=== PATIENT | male | born 1980 | race Caucasian/White ===

== ENCOUNTER 2017-01-22 20:28 | Emergency (ER) | payer MEDICAID, OTHER ==
[2017-01-22 20:32] VITALS: BP 125/103; PULSE 136; RESP 18; TEMP 98.2; O2SAT 95
== END 2017-01-22 21:25 | disposition left against medical advice (07) ==
DX: Z53.21 Procedure and treatment not carried out due to patient leaving prior to being seen by health care provider (principal)

== ENCOUNTER 2017-01-28 21:01 | Emergency (ER) | payer MEDICAID ==
[2017-01-28 21:12] VITALS: RESP 16
--- NOTE | 2017-01-28 21:27 | CPEKG ---
Heart Rate: 97 RR Interval: 619 P-R Interval: 152 QRSD Interval: 94 QT Interval: 348 QTC Interval: 442 P [place]: 56 QRS [place]: 20 T Wave [place]: 5 EKG Severity - NORMAL ECG - EKG Impression: SINUS RHYTHM Electronically Signed By: Keny Lepe 28-Jan-2017 22:59:16
[2017-01-28 21:33] VITALS: TEMP 98.6
[2017-01-28] MEDS ORDERED: ONDANSETRON 4 MG/2 ML VIAL IVP ONE (21:38)
[2017-01-28] MEDS ORDERED: NS 1,000 ML IV ONE (21:38)
[2017-01-28] MEDS ORDERED: ONDANSETRON 4 MG/2 ML VIAL ONE (21:38)
[2017-01-28 21:47] LABS: % IMMATURE GRANULYOCYTES 0.2 % (0.0-1.1); ABSOLUTE IMMATURE GRANULOCYTES 0.02 10^3/uL (0.00-0.10); ADD DIFF? NO; ADD MORPH? NO; ADD SCAN? NO; ATYPICAL LYMPHOCYTE FLAG 0 (0-99); FRAGMENT RBC FLAG 0 (0-99); HEMATOCRIT 50.3 % (40.0-51.0); HEMOGLOBIN 18.4 g/dL (13.7-17.5); LEFT SHIFT FLG 0 (0-99); LIPEMIA HEMOLYSIS FLAG 90 (0-99); MEAN CELL HEMOGLOBIN 30.7 pg (27.9-34.1); MEAN CELL HEMOGLOBIN CONCENTR. 36.6 g/dL (32.4-36.7); MEAN CELL VOLUME 83.8 fL (81.5-99.8); MEAN PLATELET VOLUME 9.6 fL (8.7-11.7); PLATELET CLUMPS FLAG 0 (0-99); PLATELET COUNT 118 10^3/uL (150-400); RED CELL DISTRIBUTION WIDTH 11.7 % (11.5-15.2)
[2017-01-28 21:49] LABS: ANION GAP 24 mEq/L (8-16); CALCIUM 9.4 mg/dL (8.5-10.4); CARBON DIOXIDE 30 mEq/l (22-31); CHLORIDE 85 mEq/L (97-110); GLOMERULAR FILTRATION RATE > 60; GLUCOSE 124 mg/dL (70-100); POTASSIUM 3.8 mEq/L (3.5-5.2); SODIUM 139 mEq/L (134-144)
--- NOTE | 2017-01-28 22:01 | EDPHY ---
H & P Time Seen by Provider: 01/28/17 21:28 HPI/ROS: CHIEF COMPLAINT: Alcohol intoxication, vomiting HISTORY OF PRESENT ILLNESS: 36-year-old male presents to the emergency department by ambulance with acute alcohol intoxication. The patient states that he has been drinking heavily over last 2 weeks. He has been vomiting intermittently over last several days. Today he became very weak and was unable to get out of the bathtub and his brother's girlfriend called EMS for transport to the hospital. Patient has had intermittent chest pain for last several days as well. He denies difficulty breathing. He denies neck or back pain. No reported trauma. No injury to upper or lower extremities. REVIEW OF SYSTEMS: Constitutional: No fever, no chills. Eyes: No double or blurry vision. ENT: No sore throat. Respiratory: No cough, no shortness of breath. Cardiac: chest pain. Gastrointestinal: Vomiting as above. No diarrhea. Genitourinary: No dysuria. Musculoskeletal: No neck or back pain. Skin: No rashes. Neurological: No headache. Past Medical/Surgical History: Alcoholism, alcohol withdrawal seizures, hypertension noncompliant with medication Social History: Single Smoking Status: Current some day smoker Physical Exam: General Appearance: Alert, no distress. Smells strongly of alcohol. No visible signs of trauma to his head. Eyes: Pupils equal and round. Extraocular motions are all intact. ENT: Mouth: Mucous membranes moist. Respiratory: No wheezing, rhonchi, or rales, lungs are clear to auscultation. Cardiovascular: Regular rate and rhythm. Gastrointestinal: Abdomen is soft. He does have tenderness with palpation in the right upper quadrant. There is no masses, rebound or guarding noted. No CVA tenderness bilaterally. Neurological: Alert and oriented x 3, cranial nerves II through XII grossly intact Skin: Warm and dry, no rashes. Musculoskeletal: Nontender to palpate along the cervical, thoracic or lumbar spine. Neck is supple. Extremities: Full range of motion and no peripheral edema. Psychiatric: Patient is oriented X 3, there is no agitation. Constitutional: Initial Vital Signs Temperature (C) 37 C 01/28/17 21:10 Heart Rate 95 01/28/17 21:10 Respiratory Rate 16 01/28/17 21:10 Blood Pressure 132/91 H 01/28/17 21:10 O2 Sat (%) 94 01/28/17 21:10 O2 Delivery Mode Room Air Allergies/Adverse Reactions: No Known Allergies Allergy (Unverified 04/13/16 14:22) Home Medications: Medication Instructions Recorded NK [No Known Home Meds] 04/13/16 Medical Decision Making ED Course/Re-evaluation: 36-year-old male who is acutely intoxicated with alcohol presents to the emergency department by ambulance with vomiting. He had an IV established by EMS and he was given IV normal saline and IV Zofran. Patient was feeling much better. Laboratory studies reveal normal CO2 30. Sodium and potassium are normal. The patient is requesting removal of his IV. At 10:45 p.m.: Patient is ambulatory unassisted and is requesting to be discharged. His brother's girlfriend is at bedside who is sober and will take him home. I did encourage [facility] to [facility], however the patient refused. Differential Diagnosis: Including but not limited to dehydration, electrolyte abnormality, alcoholic ketoacidosis - Data Points Laboratory Results: Laboratory Results 01/28/17 21:00 01/28/17 21:00 01/28/17 01/28/17 21:00 21:00 WBC 8.58 10^3/uL 10^3/uL (3.80-9.50) RBC 6.00 10^6/uL 10^6/uL (4.40-6.38) Hgb 18.4 g/dL H g/dL (13.7-17.5) Hct 50.3 % % (40.0-51.0) MCV 83.8 fL fL (81.5-99.8) MCH 30.7 pg pg (27.9-34.1) MCHC 36.6 g/dL g/dL (32.4-36.7) RDW 11.7 % % (11.5-15.2) Plt Count 118 10^3/uL L 10^3/uL (150-400) MPV 9.6 fL fL (8.7-11.7) Neut % (Auto) 46.8 % % (39.3-74.2) Lymph % (Auto) 44.4 % % (15.0-45.0) [place] % (Auto) 8.2 % % (4.5-13.0) Eos % (Auto) 0.1 % L % (0.6-7.6) Baso % (Auto) 0.3 % % (0.3-1.7) Nucleat RBC Rel Count 0.0 % % (0.0-0.2) Absolute Neuts (auto) 4.01 10^3/uL 10^3/uL (1.70-6.50) Absolute Lymphs (auto) 3.81 10^3/uL H 10^3/uL (1.00-3.00) Absolute Monos (auto) 0.70 10^3/uL 10^3/uL (0.30-0.80) Absolute Eos (auto) 0.01 10^3/uL L 10^3/uL (0.03-0.40) Absolute Basos (auto) 0.03 10^3/uL 10^3/uL (0.02-0.10) Absolute Nucleated RBC 0.00 10^3/uL 10^3/uL (0-0.01) Immature Gran % 0.2 % % (0.0-1.1) Immature Gran # 0.02 10^3/uL 10^3/uL (0.00-0.10) Sodium 139 mEq/L mEq/L (134-144) Potassium 3.8 mEq/L mEq/L (3.5-5.2) Chloride 85 mEq/L L mEq/L (97-110) Carbon Dioxide 30 mEq/l mEq/l (22-31) Anion Gap 24 mEq/L H mEq/L (8-16) BUN 12 mg/dL mg/dL (7-23) Creatinine 1.0 mg/dL mg/dL (0.7-1.3) Estimated GFR > 60 Glucose 124 mg/dL H mg/dL (70-100) Calcium 9.4 mg/dL mg/dL (8.5-10.4) Ethyl Alcohol 444 mg/dL H* mg/dL (0-10) Medications Given: Discontinued Medications Sodium Chloride (Ns) 1,000 mls @ 0 mls/hr IV ONCE ONE PRN Reason: Wide Open Stop: 01/28/17 21:39 Last Admin: 01/28/17 21:40 Dose: 1,000 mls Ondansetron HCl (Zofran) 4 mg IVP EDNOW ONE Stop: 01/28/17 21:39 Last Admin: 01/28/17 21:40 Dose: 4 mg Departure - Departure Disposition: Home, Routine, Self-Care Clinical Impression: Alcoholic intoxication Qualifiers: Complication of substance-induced condition: uncomplicated Qualified Code(s): F10.920 - Alcohol use, unspecified with intoxication, uncomplicated Vomiting Qualifiers: Vomiting type: unspecified Vomiting Intractability: non-intractable Nausea presence: with nausea Qualified Code(s): R11.2 - Nausea with vomiting, unspecified Condition: Good Instructions: Alcohol Intoxication (ED), Acute Nausea and Vomiting (ED) Additional Instructions: You should not drink alcohol in excess. Return to the emergency department if you developed vomiting, abdominal pain, recurring chest pain, or if you feel worse in any way. Referrals: [facility] [Outside] - As per Instructions Apple Orellana DO [Doctor of Osteopathy] - As per Instructions (Primary care provider manager division)
[2017-01-28 22:02] LABS: ETHANOL SERUM 444 mg/dL (0-10)
[2017-01-28 22:56] VITALS: BP 137/87; PULSE 93; O2SAT 96
== END 2017-01-28 22:55 | disposition home or self-care (01) ==
LOC: EDUNIT#
DX: F10.920 Alcohol use, unspecified with intoxication, uncomplicated (principal); R11.2 Nausea with vomiting, unspecified; I10 Essential (primary) hypertension; F17.200 Nicotine dependence, unspecified, uncomplicated
CPT/HCPCS: 96374; G0480; J2405

== ENCOUNTER 2018-11-11 14:20 | Inpatient (IN) | payer MEDICAID | END 2018-11-13 10:11 | disposition home or self-care (01) | LOC: F1N 11-12 14:33 → F2N 18:33 ==